=== PATIENT | male | born 1965 | race Caucasian/White ===

== ENCOUNTER 2017-05-18 17:45 | Emergency (ER) | payer SELFPAY ==
[~2017-05-18] VITALS: Ht 182.9 cm; Wt 117.9 kg
[2017-05-18 18:38] VITALS: BP 162/115
--- NOTE | 2017-05-18 19:41 | NUR ---
Patient ambulated to bed 05.
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
--- NOTE | 2017-05-18 19:50 | NUR ---
AT BEDSIDE EVALUATING PT.
[2017-05-18] MEDS ORDERED: KETOROLAC 30 MG/ML VIAL IM ONE (20:15)
[2017-05-18 20:38] VITALS: BP 137/73
--- NOTE | 2017-05-18 20:38 | NUR ---
Patient discharged with v/s stable. Written and verbal after care instructions given and explained. Patient alert, oriented and verbalized understanding of instructions. Ambulatory with steady gait. All questions addressed prior to discharge. ID band removed. Patient advised to follow up with PMD OR RETURN TO ER IF CONDITION WORSENS. Rx of NAPROXEN given. Patient educated on indication of medication including possible reaction and side effects. Opportunity to ask questions provided and answered.
== END 2017-05-18 20:38 | disposition home or self-care (01) ==
LOC: MED 17:45
DX: S63.592A Other specified sprain of left wrist, initial encounter (principal); M25.512 Pain in left shoulder; V49.9XXA Car occupant (driver) (passenger) injured in unspecified traffic accident, initial encounter; Y93.89 Activity, other specified; Y92.488 Other paved roadways as the place of occurrence of the external cause; Y99.8 Other external cause status
CPT/HCPCS: 73110; 96372; 99284; J1885